=== PATIENT | male | born 1950 | race Caucasian/White ===

== ENCOUNTER 2018-11-05 10:22 | Emergency (ER) | payer MEDICARE ==
--- NOTE | 2018-11-05 11:21 | RAD ---
LEFT FOOT THREE VIEWS: History: Tripped and fall. Pain. Comparison: None. FINDINGS: Lisfranc alignment is maintained. Joint spaces are preserved. No fracture. IMPRESSION: Unremarkable left foot three views. POS: [facility]
== END 2018-11-05 12:40 | disposition home or self-care (01) ==
LOC: ERS 10:22
DX: S93.602A Unspecified sprain of left foot, initial encounter (principal); I10 Essential (primary) hypertension; Z79.899 Other long term (current) drug therapy; W01.0XXA Fall on same level from slipping, tripping and stumbling without subsequent striking against object, initial encounter